=== PATIENT | female | born 1990 | race Hispanic/Latino ===

== ENCOUNTER 2020-01-24 14:32 | Inpatient (IN) | payer OTHER ==
[2020-01-24 15:40] LABS: Amphetamine Screen,Urine PRESUMPTIVE NEGATIVE; Benzodiazepines Screen,Urine PRESUMPTIVE NEGATIVE; Cannabinoid Screen,Urine PRESUMPTIVE POSITIVE; Methadone Screen,Urine PRESUMPTIVE NEGATIVE; Opiate Screen,Urine PRESUMPTIVE NEGATIVE
[2020-01-24 15:52] LABS: Bacteria,Urine 1+ /HPF (Negative); Bilirubin,Urine NEG (Negative); Blood,Urine MOD (Negative); Color,Urine Straw (Yellow); Protein,Urine <15 mg/dL mg/dL (Negative); Urobilinogen,Urine < 2.0 mg/dL (<2.0)
[2020-01-24 15:53] LABS: HCG Qualitative,Urine Negative (Negative)
[2020-01-24 15:59] LABS: Cocaine Screen,Urine PRESUMPTIVE NEGATIVE
[2020-01-24] MEDS ORDERED: SODIUM CHLORIDE 0.9% 1000 ML 1,000 ML IV ONE ×4 (16:02→19:46)
[2020-01-24] MEDS ORDERED: KETAMINE 500 MG/5 ML VIAL MDV ONE (16:13)
[2020-01-24] MEDS ORDERED: KETAMINE 500 MG/5 ML VIAL MDV IV ONE (16:14)
[2020-01-24 17:00] LABS: Alanine Aminotransferase 28 units/L (7-56); BUN/Creatinine Ratio 9; Bilirubin,Direct < 0.2 mg/dL (0-0.2); Blood Urea Nitrogen 7 mg/dL (7-17); Calcium 8.9 mg/dL (8.4-10.2); Creatine Kinase MB < 1.0 ng/mL (0.0-4.0); Hemolysis Index 22
[2020-01-24 17:07] LABS: Hematocrit 40.8 % (30.3-42.9); Hemoglobin 13.5 gm/dl (10.1-14.3); Mean Corpuscular HGB Conc 33 % (30-34); Mean Corpuscular Volume 90 fl (79-97); Red Blood Count 4.53 M/mm3 (3.65-5.03); Red Cell Distribution Width 13.5 % (13.2-15.2)
[2020-01-24 17:09] LABS: Platelet Count 249 K/mm3 (140-440)
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
[2020-01-24 17:55] LABS: Basophils % (Manual) 0 % (0.0-1.8); Eosinophils % (Manual) 0 % (0.0-4.3); Total Cells Counted 100
[2020-01-24 17:56] LABS: Platelet Clumps Few; RBC Morphology Normal
[2020-01-24 18:20] LABS: ABG Base Excess -4.4 mmol/L (-2.0-3.0); ABG HCO3 20.6 mmol/L (20.0-26.0); ABG Methemoglobin 0.7 % (0.0-1.5); ABG Oxygen Saturation 99.2 % (95.0-99.0); ABG PCO2 37.8 mm Hg; ABG PH 7.354 pH Units (7.350-7.450); ABG PO2 188.6 mm Hg (80.0-90.0); VEN PH 7.354 (7.320-7.420)
[2020-01-24 18:31] LABS: Blood Urea Nitrogen 6 mg/dL (7-17); Calcium 8.4 mg/dL (8.4-10.2); Hemolysis Index 8
[2020-01-24 18:41] LABS: BUN/Creatinine Ratio 9
[2020-01-24 18:51] LABS: Free T4 (Free Thyroxine) 1.24 ng/dL (0.76-1.46)
[2020-01-24] MEDS: POTASSIUM CHLORIDE 10 MEQ 10 MEQ/100 ML BAG IV SCH ×3 (19:13→21:47)
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
--- NOTE | 2020-01-24 20:44 | XRay Report ---
CHEST 1 VIEW 01/24/2020 8:29 PM INDICATION / CLINICAL INFORMATION: hypertension. COMPARISON: None available. FINDINGS: SUPPORT DEVICES: None. HEART / MEDIASTINUM: No significant abnormality. LUNGS / PLEURA: No significant pulmonary or pleural abnormality. No pneumothorax. ADDITIONAL FINDINGS: No significant additional findings. IMPRESSION: 1. No acute abnormality of the chest. Signer Name: Yunior Anaya MD Signed: 01/24/2020 8:40 PM Workstation Name: [id number]
[2020-01-24 21:06] LABS: Creatine Kinase MB 1.4 ng/mL (0.0-4.0)
[2020-01-24 21:19] LABS: BUN/Creatinine Ratio 10; Blood Urea Nitrogen 6 mg/dL (7-17); Hemolysis Index 2
[2020-01-24 21:22] LABS: Iron 14 ug/dL (37-170); Total Iron Binding Capacity 232 mcg/dL (250-450)
[2020-01-25] MEDS ORDERED: POTASSIUM CHLORIDE 10 MEQ 10 MEQ/100 ML BAG IV ONE (00:18)
[2020-01-25 02:18] LABS: Blood Urea Nitrogen 7 mg/dL (7-17); Calcium 8.4 mg/dL (8.4-10.2); Hemolysis Index 115
[2020-01-25 02:22] LABS: BUN/Creatinine Ratio 12
[2020-01-25] MEDS ORDERED: SODIUM CHLORIDE 0.9% 1000 ML 1,000 ML ONE (02:49)
[2020-01-25] MEDS: POTASSIUM CHLORIDE 10 MEQ 10 MEQ/100 ML BAG IV SCH (03:04)
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
[2020-01-25] MEDS ORDERED: oxyCODONE /ACETAMINOPHEN 5-325MG TAB PO PRN (08:27)
[2020-01-25] MEDS ORDERED: ACETAMINOPHEN 325 MG TAB PO PRN (08:27)
[2020-01-25] MEDS ORDERED: ONDANSETRON 4 MG/2 ML INJ IV PRN (08:27)
[2020-01-25] MEDS ORDERED: D5W/0.9% NACL 1,000 ML IV SCH (09:00)
[2020-01-25] MEDS: cefTRIAXone/NS 2 GM/100 ML 2 GM/100 ML BAG IV SCH (09:12)
[2020-01-25] MEDS: FAMOTIDINE 20 MG/2 ML INJ IV SCH ×2 (09:12→22:14)
[2020-01-25 09:27] LABS: Basophils % (Auto) 0.2 % (0.0-1.8); Eosinophils % (Auto) 0.2 % (0.0-4.3); Hematocrit 36.4 % (30.3-42.9); Hemoglobin 12.3 gm/dl (10.1-14.3); Lymphocytes # (Auto) 1.1 K/mm3 (1.2-5.4); Lymphocytes % (Auto) 10.3 % (13.4-35.0); Mean Corpuscular HGB Conc 34 % (30-34); Mean Corpuscular Volume 89 fl (79-97); Monocytes # (Auto) 0.9 K/mm3 (0.0-0.8); Monocytes % (Auto) 8.2 % (0.0-7.3); Platelet Count 213 K/mm3 (140-440); Red Blood Count 4.09 M/mm3 (3.65-5.03); Red Cell Distribution Width 13.3 % (13.2-15.2)
[2020-01-25 09:49] LABS: Alanine Aminotransferase 21 units/L (7-56); Albumin 3.3 g/dL (3.9-5); Blood Urea Nitrogen 7 mg/dL (7-17); Calcium 8.6 mg/dL (8.4-10.2); Hemolysis Index 4
[2020-01-25 09:51] LABS: BUN/Creatinine Ratio 10
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
--- NOTE | 2020-01-25 15:02 | Progress Note ---
Assessment and Plan -- Acute encephalopathy Possibly multifactorial including alcohol and marijuana cont IV fluids and monitor clinically -- Metabolic acidosis Secondary to alcohol and THC dependence and possible vomiting IV fluids for now IV Zofran for now Repeat labs in 24 hours -- Acute delirium Mental health consult to clear for discharge Patient is not homicidal or suicidal Continue all IV fluids and follow psych recommendation --EtOH dependence Counseled for alcohol cessation when clinically stable --Tetrahydrocannabinol (THC) dependence Patient to be counseled once she is stable -- Elevated lactic acid level Nonspecific likely from dehydration, repeat lactic acid level -- UTI (urinary tract infection) Mild IV Rocephin Patient has leukocytosis which may be demargination -- DVT prophylaxis On heparin and GI prophylaxis 01/24: Continue to follow psych recommendation, psych medications has been adjusted. Patient clinically looks stable. Discharge planning per psych recommendation Subjective Date of service: 01/25/20 Interval history: Patient seen and examined. Medical records and medication list reviewed. No acute event overnight noted by the RN. Patient denies any chest pain or difficulty breathing. Patient is tolerating diet. Discussed plan of care at bedside with patient. Objective - Exam Narrative Exam: GENERAL: well-developed and well-nourished young white female lying on bed appeared to be in no discomfort. HEENT: Normocephalic. Atraumatic. No conjunctival congestion or icterus. Patient has moist mucous membranes. NECK: Supple. Trachea midline. CHEST/LUNGS: Clear to auscultated bilaterally, breathing nonlabored. No wheezes crackles or rhonchi. HEART/CARDIOVASCULAR: Regular in rate and rhythm. S1 and S2 positive. ABDOMEN: Abdomen is soft, nontender. Patient has normal bowel sounds. SKIN: There is no rash. Warm and dry. NEURO: No focal motor deficit. Follows command. MUSCULOSKELETAL: No joint effusion or tenderness. EXTRIMITY: No edema, no cyanosis or clubbing. PSYCH: Cooperative. - Constitutional Vitals: Vital Signs - 12hr 01/25/20 01/25/20 01/25/20 04:01 04:51 05:01 Temperature Pulse Rate 117 H Respiratory 16 Rate Blood Pressure 111/55 111/55 111/55 O2 Sat by Pulse 96 97 97 Oximetry 01/25/20 01/25/20 01/25/20 05:11 05:21 08:00 Temperature 98.2 F Pulse Rate Respiratory Rate Blood Pressure 111/55 111/55 O2 Sat by Pulse 97 97 96 Oximetry 01/25/20 01/25/20 01/25/20 10:00 12:00 12:10 Temperature 98.4 F Pulse Rate 101 H 117 H Respiratory 24 Rate Blood Pressure O2 Sat by Pulse 96 Oximetry 01/25/20 01/25/20 01/25/20 12:11 12:21 12:31 Temperature Pulse Rate 104 H 102 H Respiratory 20 18 19 Rate Blood Pressure O2 Sat by Pulse 81 L 75 L 96 Oximetry 01/25/20 01/25/20 01/25/20 12:41 12:51 13:00 Temperature Pulse Rate 101 H 94 H Respiratory 16 17 Rate Blood Pressure 126/81 O2 Sat by Pulse 83 L Oximetry 01/25/20 01/25/20 01/25/20 13:11 13:30 14:12 Temperature Pulse Rate 100 H Respiratory 21 Rate Blood Pressure 126/81 126/81 126/81 O2 Sat by Pulse 83 L 89 Oximetry - Labs CBC & Chem 7: 01/25/20 08:45 01/26/20 04:58 Labs: Abnormal lab results 01/24/20 01/24/20 01/24/20 Range/Units 16:23 16:23 16:23 WBC (4.5-11.0) K/mm3 Lymph % (Auto) (13.4-35.0) % [place] % (Auto) (0.0-7.3) % Lymph # (Auto) (1.2-5.4) K/mm3 [place] # (Auto) (0.0-0.8) K/mm3 Seg Neutrophils % (40.0-70.0) % Seg Neuts % (Manual) (40.0-70.0) % Lymphocytes % (Manual) (13.4-35.0) % Seg Neutrophils # (1.8-7.7) K/mm3 Seg Neutrophils # Man (1.8-7.7) K/mm3 Lymphocytes # (Manual) (1.2-5.4) K/mm3 Monocytes # (Manual) (0.0-0.8) K/mm3 ABG pO2 (80.0-90.0) mm Hg ABG O2 Saturation (95.0-99.0) % ABG Base Excess (-2.0-3.0) mmol/L Oxyhemoglobin (95.0-99.0) % Potassium 3.0 L (3.6-5.0) mmol/L Chloride (98-107) mmol/L Carbon Dioxide 11 L (22-30) mmol/L BUN (7-17) mg/dL Glucose 172 H (65-100) mg/dL Lactic Acid (0.7-2.0) mmol/L Calcium (8.4-10.2) mg/dL Iron (37-170) ug/dL TIBC (250-450) mcg/dL Total Protein (6.3-8.2) g/dL Albumin (3.9-5) g/dL Ur Specific [place] (1.003-1.030) Urine WBC (Auto) (0.0-6.0) /HPF Salicylates < 0.3 L (2.8-20.0) mg/dL Acetaminophen 5.0 L (10.0-30.0) ug/mL Plasma/Serum Alcohol (0-0.07) % 01/24/20 01/24/20 01/24/20 Range/Units 16:23 16:23 18:08 WBC 19.0 H (4.5-11.0) K/mm3 Lymph % (Auto) (13.4-35.0) % [place] % (Auto) (0.0-7.3) % Lymph # (Auto) (1.2-5.4) K/mm3 [place] # (Auto) (0.0-0.8) K/mm3 Seg Neutrophils % (40.0-70.0) % Seg Neuts % (Manual) 90.0 H (40.0-70.0) % Lymphocytes % (Manual) 5.0 L (13.4-35.0) % Seg Neutrophils # (1.8-7.7) K/mm3 Seg Neutrophils # Man 17.1 H (1.8-7.7) K/mm3 Lymphocytes # (Manual) 1.0 L (1.2-5.4) K/mm3 Monocytes # (Manual) 1.0 H (0.0-0.8) K/mm3 ABG pO2 (80.0-90.0) mm Hg ABG O2 Saturation (95.0-99.0) % ABG Base Excess (-2.0-3.0) mmol/L Oxyhemoglobin (95.0-99.0) % Potassium (3.6-5.0) mmol/L Chloride (98-107) mmol/L Carbon Dioxide 18 L D (22-30) mmol/L BUN 6 L (7-17) mg/dL Glucose 120 H (65-100) mg/dL Lactic Acid (0.7-2.0) mmol/L Calcium (8.4-10.2) mg/dL Iron (37-170) ug/dL TIBC (250-450) mcg/dL Total Protein (6.3-8.2) g/dL Albumin (3.9-5) g/dL Ur Specific [place] (1.003-1.030) Urine WBC (Auto) (0.0-6.0) /HPF Salicylates (2.8-20.0) mg/dL Acetaminophen (10.0-30.0) ug/mL Plasma/Serum Alcohol 0.09 H (0-0.07) % 01/24/20 01/24/20 01/24/20 Range/Units 18:08 18:08 18:08 WBC (4.5-11.0) K/mm3 Lymph % (Auto) (13.4-35.0) % [place] % (Auto) (0.0-7.3) % Lymph # (Auto) (1.2-5.4) K/mm3 [place] # (Auto) (0.0-0.8) K/mm3 Seg Neutrophils % (40.0-70.0) % Seg Neuts % (Manual) (40.0-70.0) % Lymphocytes % (Manual) (13.4-35.0) % Seg Neutrophils # (1.8-7.7) K/mm3 Seg Neutrophils # Man (1.8-7.7) K/mm3 Lymphocytes # (Manual) (1.2-5.4) K/mm3 Monocytes # (Manual) (0.0-0.8) K/mm3 ABG pO2 188.6 H (80.0-90.0) mm Hg ABG O2 Saturation 99.2 H (95.0-99.0) % ABG Base Excess -4.4 L (-2.0-3.0) mmol/L Oxyhemoglobin 94.5 L (95.0-99.0) % Potassium (3.6-5.0) mmol/L Chloride (98-107) mmol/L Carbon Dioxide (22-30) mmol/L BUN (7-17) mg/dL Glucose (65-100) mg/dL Lactic Acid 2.30 H* (0.7-2.0) mmol/L Calcium (8.4-10.2) mg/dL Iron 14 L (37-170) ug/dL TIBC 232 L (250-450) mcg/dL Total Protein (6.3-8.2) g/dL Albumin (3.9-5) g/dL Ur Specific [place] (1.003-1.030) Urine WBC (Auto) (0.0-6.0) /HPF Salicylates (2.8-20.0) mg/dL Acetaminophen (10.0-30.0) ug/mL Plasma/Serum Alcohol (0-0.07) % 01/24/20 01/24/20 01/24/20 Range/Units 19:00 19:46 20:24 WBC (4.5-11.0) K/mm3 Lymph % (Auto) (13.4-35.0) % [place] % (Auto) (0.0-7.3) % Lymph # (Auto) (1.2-5.4) K/mm3 [place] # (Auto) (0.0-0.8) K/mm3 Seg Neutrophils % (40.0-70.0) % Seg Neuts % (Manual) (40.0-70.0) % Lymphocytes % (Manual) (13.4-35.0) % Seg Neutrophils # (1.8-7.7) K/mm3 Seg Neutrophils # Man (1.8-7.7) K/mm3 Lymphocytes # (Manual) (1.2-5.4) K/mm3 Monocytes # (Manual) (0.0-0.8) K/mm3 ABG pO2 (80.0-90.0) mm Hg ABG O2 Saturation (95.0-99.0) % ABG Base Excess (-2.0-3.0) mmol/L Oxyhemoglobin (95.0-99.0) % Potassium (3.6-5.0) mmol/L Chloride 109.0 H (98-107) mmol/L Carbon Dioxide (22-30) mmol/L BUN 6 L (7-17) mg/dL Glucose 107 H (65-100) mg/dL Lactic Acid 6.80 H* 2.80 H* (0.7-2.0) mmol/L Calcium 8.0 L (8.4-10.2) mg/dL Iron (37-170) ug/dL TIBC (250-450) mcg/dL Total Protein (6.3-8.2) g/dL Albumin (3.9-5) g/dL Ur Specific [place] (1.003-1.030) Urine WBC (Auto) (0.0-6.0) /HPF Salicylates (2.8-20.0) mg/dL Acetaminophen (10.0-30.0) ug/mL Plasma/Serum Alcohol (0-0.07) % 01/24/20 01/25/20 01/25/20 Range/Units Unknown 01:52 08:45 WBC (4.5-11.0) K/mm3 Lymph % (Auto) 10.3 L (13.4-35.0) % [place] % (Auto) 8.2 H (0.0-7.3) % Lymph # (Auto) 1.1 L (1.2-5.4) K/mm3 [place] # (Auto) 0.9 H (0.0-0.8) K/mm3 Seg Neutrophils % 81.1 H (40.0-70.0) % Seg Neuts % (Manual) (40.0-70.0) % Lymphocytes % (Manual) (13.4-35.0) % Seg Neutrophils # 8.7 H (1.8-7.7) K/mm3 Seg Neutrophils # Man (1.8-7.7) K/mm3 Lymphocytes # (Manual) (1.2-5.4) K/mm3 Monocytes # (Manual) (0.0-0.8) K/mm3 ABG pO2 (80.0-90.0) mm Hg ABG O2 Saturation (95.0-99.0) % ABG Base Excess (-2.0-3.0) mmol/L Oxyhemoglobin (95.0-99.0) % Potassium 5.2 H (3.6-5.0) mmol/L Chloride 110.4 H (98-107) mmol/L Carbon Dioxide 19 L (22-30) mmol/L BUN (7-17) mg/dL Glucose (65-100) mg/dL Lactic Acid (0.7-2.0) mmol/L Calcium (8.4-10.2) mg/dL Iron (37-170) ug/dL TIBC (250-450) mcg/dL Total Protein (6.3-8.2) g/dL Albumin (3.9-5) g/dL Ur Specific [place] 1.002 L (1.003-1.030) Urine WBC (Auto) 8.0 H (0.0-6.0) /HPF Salicylates (2.8-20.0) mg/dL Acetaminophen (10.0-30.0) ug/mL Plasma/Serum Alcohol (0-0.07) % 01/25/20 Range/Units 08:45 WBC (4.5-11.0) K/mm3 Lymph % (Auto) (13.4-35.0) % [place] % (Auto) (0.0-7.3) % Lymph # (Auto) (1.2-5.4) K/mm3 [place] # (Auto) (0.0-0.8) K/mm3 Seg Neutrophils % (40.0-70.0) % Seg Neuts % (Manual) (40.0-70.0) % Lymphocytes % (Manual) (13.4-35.0) % Seg Neutrophils # (1.8-7.7) K/mm3 Seg Neutrophils # Man (1.8-7.7) K/mm3 Lymphocytes # (Manual) (1.2-5.4) K/mm3 Monocytes # (Manual) (0.0-0.8) K/mm3 ABG pO2 (80.0-90.0) mm Hg ABG O2 Saturation (95.0-99.0) % ABG Base Excess (-2.0-3.0) mmol/L Oxyhemoglobin (95.0-99.0) % Potassium (3.6-5.0) mmol/L Chloride 111.5 H (98-107) mmol/L Carbon Dioxide (22-30) mmol/L BUN (7-17) mg/dL Glucose (65-100) mg/dL Lactic Acid (0.7-2.0) mmol/L Calcium (8.4-10.2) mg/dL Iron (37-170) ug/dL TIBC (250-450) mcg/dL Total Protein 6.0 L (6.3-8.2) g/dL Albumin 3.3 L (3.9-5) g/dL Ur Specific [place] (1.003-1.030) Urine WBC (Auto) (0.0-6.0) /HPF Salicylates (2.8-20.0) mg/dL Acetaminophen (10.0-30.0) ug/mL Plasma/Serum Alcohol (0-0.07) %
[2020-01-25] MEDS: DIVALPROEX DR 125 MG TAB PO SCH (22:14)
[2020-01-25] MEDS: risperiDONE 0.25 MG TAB PO SCH (22:14)
[2020-01-26 05:44] LABS: Alanine Aminotransferase 23 units/L (7-56); Albumin 3.4 g/dL (3.9-5); Blood Urea Nitrogen 5 mg/dL (7-17); Calcium 8.6 mg/dL (8.4-10.2); Hemolysis Index 3
[2020-01-26 05:47] LABS: BUN/Creatinine Ratio 7
[2020-01-26 06:57] VITALS: BP 127/80
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
[2020-01-26] MEDS: cefTRIAXone/NS 2 GM/100 ML 2 GM/100 ML BAG IV SCH (11:22)
[2020-01-26] MEDS: FAMOTIDINE 20 MG/2 ML INJ IV SCH (11:23)
[2020-01-26] MEDS: DIVALPROEX DR 125 MG TAB PO SCH (11:23)
[2020-01-26] MEDS: risperiDONE 0.25 MG TAB PO SCH (11:24)
[2020-01-26] MEDS ORDERED: FLU VACC QUAD 2020-2021 (6 months +)/PF 60 0.5 ML SYRINGE IM ONE (12:00)
--- NOTE | 2020-01-26 15:39 | Discharge Summary ---
Providers - Providers Date of Admission: 01/24/20 19:32 Date of discharge: 01/26/20 Attending physician: UGERLINE FERNANDEZ 01/25/20 Consult to Case Management [CONS] Routine Services Needed at Discharge: Maintenance Aide Notified:: block and case maker 01/25/20 08:27 Consult to Mental Health [CONS] Routine Reason For Exam: Acute confusion/delirium Primary care physician: PRESCHOOL ASSISTANT Hospitalization Condition: Stable Hospital course: Discharge diagnosis: Acute encephalopathy, resolved -Possibly due to alcohol and marijuana abuse Metabolic acidosis, likely due to dehydration, resolved with IV fluid Acute delirium resolved EtOH dependence, counseled for cessation Marijuana abuse, counseled for cessation Bipolar disorder, psych consulted and medication adjusted Cocaine use disorder Substance-induced mood disorder Lactic acidosis, likely due to dehydration and UTI Mild UTI treated with antibiotics Bacterial vaginosis, likely Disposition: DC-01 TO HOME OR SELFCARE Time spent for discharge: 34 minutes Core Measure Documentation - Palliative Care Palliative Care/ Comfort Measures: Not Applicable - Core Measures Any of the following diagnoses?: none Exam - Physical Exam Narrative exam: GENERAL: well-developed and well-nourished young white female lying on bed appeared to be in no discomfort. HEENT: Normocephalic. Atraumatic. No conjunctival congestion or icterus. Patient has moist mucous membranes. NECK: Supple. Trachea midline. CHEST/LUNGS: Clear to auscultated bilaterally, breathing nonlabored. No wheezes crackles or rhonchi. HEART/CARDIOVASCULAR: Regular in rate and rhythm. S1 and S2 positive. ABDOMEN: Abdomen is soft, nontender. Patient has normal bowel sounds. SKIN: There is no rash. Warm and dry. NEURO: No focal motor deficit. Follows command. MUSCULOSKELETAL: No joint effusion or tenderness. EXTRIMITY: No edema, no cyanosis or clubbing. PSYCH: Cooperative. - Constitutional Vitals: Temp Pulse Resp BP Pulse Ox 98.5 F 90 18 127/80 97 01/26/20 05:28 01/26/20 10:00 01/26/20 05:28 01/26/20 05:28 01/26/20 10:00 Plan Activity: advance as tolerated Weight Bearing Status: Weight Bear as Tolerated Diet: regular Additional Instructions: Follow-up with psychiatry as outpatient Follow up with: PRIMARY CARE, [Primary Care Provider] - 3-5 Days Prescriptions: Divalproprimitivo Castillo [Mitzi CASTILLO] 125 mg PO BID #60 tablet Fluconazole [Diflucan TAB] 100 mg PO QDAY #3 tablet metroNIDAZOLE [Flagyl] 500 mg PO Q8HR #10 tablet levoFLOXacin [Levaquin] 750 mg PO QDAY #3 tablet risperiDONE [RisperDAL] 0.25 mg PO BID #60 tab
--- NOTE | 2020-01-26 17:59 | Event Note ---
Date: 01/26/20 Medications called in to [facility] in [place] [phone] 125mg po BID #60 30 days, no refills Risperidone 0.25mg po BID #60 30 days. no refills
[2020-01-26] MEDS ORDERED: FAMOTIDINE 20 MG TAB PO SCH (22:00)
== END 2020-01-26 19:00 | disposition home or self-care (01) | DRG 917 ==
LOC: ED 14:32 → IMCU 19:32 → 4A 01-25 13:33
PROVIDERS: ADMIT Internal Medicine; ATTEND Internal Medicine
PROC: 4A033R1 Measurement of Arterial Saturation, Peripheral, Percutaneous Approach (ICD-10-PCS; principal; 2020-01-24)
DX: T40.7X1A Poisoning by cannabis (derivatives), accidental (unintentional), initial encounter (principal); G92 Toxic encephalopathy; N39.0 Urinary tract infection, site not specified; E87.2 Acidosis; B96.20 Unspecified Escherichia coli [E. coli] as the cause of diseases classified elsewhere; E86.0 Dehydration; T51.91XA Toxic effect of unspecified alcohol, accidental (unintentional), initial encounter; Y90.9 Presence of alcohol in blood, level not specified; F10.231 Alcohol dependence with withdrawal delirium; F12.20 Cannabis dependence, uncomplicated; D72.829 Elevated white blood cell count, unspecified; F14.90 Cocaine use, unspecified, uncomplicated; F31.9 Bipolar disorder, unspecified; N76.0 Acute vaginitis; B96.89 Other specified bacterial agents as the cause of diseases classified elsewhere; Y92.89 Other specified places as the place of occurrence of the external cause
CPT/HCPCS: 36415; 70450; 71045; 80048; 80053; 80076; 80307; 80320; 81001; 81025; 82010; 82140; 82550; 82553; 82693; 82803; 82805; 83036; 83550; 83735; 83930; 83935; 84439; 84443; 85007; 85025; 87076; 87086; 87186; 93005; 96361; 96365; 96366; 96375; G0378; G0480; J0696; J3480; J7030; J7042

== ENCOUNTER 2020-01-26 23:30 | Emergency (ER) | payer OTHER ==
--- NOTE | 2020-01-27 00:24 | Emergency Department Report ---
<CURTIS FERNANDEZ - Last Filed: 01/27/20 12:51> ED Psych HPI - General Chief Complaint: Psych Stated Complaint: SUICIDAL IDEATION Time Seen by Provider: 01/27/20 00:03 - Related Data Previous Rx's Medication Instructions Recorded Last Taken Type Divalproex Dr [DepaKOTE DR] 125 mg PO BID #60 tablet 01/26/20 Unknown Rx Fluconazole [Diflucan TAB] 100 mg PO QDAY #3 tablet 01/26/20 Unknown Rx levoFLOXacin [Levaquin] 750 mg PO QDAY #3 tablet 01/26/20 Unknown Rx metroNIDAZOLE [Flagyl] 500 mg PO Q8HR #10 tablet 01/26/20 Unknown Rx risperiDONE [RisperDAL] 0.25 mg PO BID #60 tab 01/26/20 Unknown Rx Allergies Allergy/AdvReac Type Severity Reaction Status Date / Time No Known Allergies Allergy Unverified 01/24/20 15:10 ED Past Medical Hx - Medications Home Medications: Home Medications Medication Instructions Recorded Confirmed Last Taken Type Divalproex Dr [DepaKOTE DR] 125 mg PO BID #60 tablet 01/26/20 Unknown Rx Fluconazole [Diflucan TAB] 100 mg PO QDAY #3 tablet 01/26/20 Unknown Rx levoFLOXacin [Levaquin] 750 mg PO QDAY #3 tablet 01/26/20 Unknown Rx metroNIDAZOLE [Flagyl] 500 mg PO Q8HR #10 tablet 01/26/20 Unknown Rx risperiDONE [RisperDAL] 0.25 mg PO BID #60 tab 01/26/20 Unknown Rx ED Medical Decision Making - Lab Data Result diagrams: 01/27/20 00:34 01/27/20 00:34 - Medical Decision Making Patient is 29 years old female presented to our ER complaining of suicidal ideation. Patient has been evaluated by our psychiatric team and advised p atient to be discharged home and follow-up as an outpatient. Patient is currently denying any suicidal homicidal ideation. No visual or auditory hallucination. Patient is medically and psychiatrically stable for discharge. ED Disposition Clinical Impression: Malingering Disposition: DC-01 TO HOME OR SELFCARE Is pt being admited?: No Condition: Stable Instructions: Persistent Depressive Disorder, Adult, Suicidal Feelings: How to Help Yourself Additional Instructions: HOMELESS RESOURCES: [facility] NEED HELP? If you are in need of help or know someone who does, please contact us at [email or web address] call , or come to our offices at [address], [place] [address], Sunday-Sunday beginning at 8AM. [facility] Admission at 7am Sun to Sun Address: [facility] [place] [address] Client Engagement [phone] Regular program admission occurs Sunday through Sunday at 7:00 amand operates on a first come, first serve basis.Because we cant anticipate program availability in advance andprogram spots are in high demand, we recommend arriving early. Space fills up fast! Next steps can include: Assignment to a [facility] program bed Connection to and placement in a partner program, or Referral to a partner agency [place] [facility] [place]: [facility] Address: [address] [place] [address] How do I join the [facility] housing program? Our housing programs are offered based on availability. If you are looking to participate in our housing program, simply call [phone] to find out if we have available space. Since we do receive many calls, please allow up to 48 hours for one of our housing specialists to return your call. If we do not have vacancies, we suggest callingthe [facility] hotline at 211 for additional housing options. [facility] [place] Admission at 4:30pm daily Address: [address] [place] [id number] OUTPATIENT MENTAL HEALTH RESOURCES [facility], [facility] Lincoln Osborn MD: [address], [address] [place] [address] [place] [address] [place] [facility]: [facility] [address] [place] [address] [place] [address] [phone] [facility] Integrative Psychiatry: [facility] Healthcare: [address] [facility] [address] [facility] [place] [address] [facility] [address] [place] [facility]: Odilon Silverio MD: [address] [facility] [address] [facility] [address] [facility]: [address] [facility] [place] [address] [phone] [place] CRISIS AND ACCESS LINE: Outpatient COMMUNITY Behavioral Health Resources: [facility] ([facility]) [address] [place] [address] / [phone] Sunday thru Sunday - 8am - 5pm [facility] Address: [address] [place] [address] Sunday thru Sunday- 7am-2pm [facility] Address: [address] [place] [address] Sunday thru Sunday: 8:30AM-5PM CRISIS RESOURCES [place] Crisis Line: Suicide Prevention Line: Crisis Text Line: Text START to 123358 Emergency: 911 Referrals: PRIMARY CARE, [Primary Care Provider] - 3-5 Days <ANG OLIVA - Last Filed: 01/27/20 20:41> ED Psych HPI - General Source: patient, EMS Mode of arrival: Ambulatory - History of Present Illness Initial Comments: 29-year-old female with reported history of borderline personality disorder, anxiety, depression, since the ED with suicidal ideations. Patient was discharged earlier today following an admission for delirium metabolic abnormalities. Patient states her admission from a few days ago was a result of an attempted overdose. Patient states she took "a bunch" of psych meds some of which were her own and some that did not belong to her. Patient was seen by mental health nurse practitioner yesterday morning, 01/26/20, prior to discharge. Patient reported at that time that she was not experiencing any SI o r HI. She expressed that she was ready to be discharged and stated that she will follow-up as an outpatient. Patient returns tonight, stating that she is feeling suicidal again, with plan to overdose again. Patient states she thought she was feeling okay, however "life got in the way again." Patient's prescriptions were called in, Depakote and Risperdal, however she did not pick them up. Complaint: suicidal ideation -: days(s) (4) Associated Psychiatric Symptoms: suicidal ideation History of same: Yes Quality: changing over time Improves With: none Worsens With: none Context: not taking psychiatric Associated Symptoms: denies other symptoms Treatments Prior to Arrival: none ED Review of Systems ROS: Stated complaint: SUICIDAL IDEATION Other details as noted in HPI Comment: All other systems reviewed and negative Psychiatric: suicidal thoughts. denies: homicidal thoughts ED Past Medical Hx - Past Medical History Previous Medical History?: Yes Hx Psychiatric Treatment: Yes (depression, anxiety) Additional medical history: Unknown - Surgical History Past Surgical History?: No - Social History Smoking Status: Current Every Day Smoker Substance Use Type: Alcohol, Other ED Physical Exam - General Limitations: No Limitations General appearance: alert, in no apparent distress - Head Head exam: Present: atraumatic, normocephalic - Eye Eye exam: Present: normal appearance, EOMI - ENT ENT exam: Present: mucous membranes moist - Neck Neck exam: Present: normal inspection - Respiratory Respiratory exam: Present: normal lung sounds bilaterally. Absent: respiratory distress - Cardiovascular Cardiovascular Exam: Present: regular rate, normal rhythm - GI/Abdominal GI/Abdominal exam: Present: soft. Absent: distended, tenderness - Extremities Exam Extremities exam: Present: normal inspection - Neurological Exam Neurological exam: Present: alert, oriented X3 - Psychiatric Psychiatric exam: Present: normal affect, normal mood - Skin Skin exam: Present: warm, dry, intact, normal color ED Course Vital Signs 01/26/20 01/27/20 23:55 03:35 Temperature 97.6 F 98.0 F Pulse Rate 70 89 Respiratory 18 18 Rate Blood Pressure 128/87 117/64 [Left] O2 Sat by Pulse 98 96 Oximetry ED Medical Decision Making - Lab Data Result diagrams: 01/27/20 00:34 01/27/20 00:34 - Medical Decision Making 29-year-old female presents to ED with suicidal ideations. Patient was just discharged this morning following a medical admission for delirium. Patient had a psychiatric consult during her admission and was cleared for discharge after stating that she was no longer suicidal. Patient no longer feels that way. Labs are unremarkable. Patient is medically cleared at this time for mental health evaluation. Will dispo per psych. Critical care attestation.: If time is entered above; I have spent that time in minutes in the direct care of this critically ill patient, excluding procedure time. ED Disposition Is pt being admited?: No
[2020-01-27 01:04] LABS: Amphetamine Screen,Urine PRESUMPTIVE NEGATIVE; Benzodiazepines Screen,Urine PRESUMPTIVE NEGATIVE; Cannabinoid Screen,Urine PRESUMPTIVE POSITIVE; Cocaine Screen,Urine PRESUMPTIVE NEGATIVE; Methadone Screen,Urine PRESUMPTIVE NEGATIVE; Opiate Screen,Urine PRESUMPTIVE NEGATIVE
[2020-01-27 01:08] LABS: Basophils # (Auto) 0.1 K/mm3 (0.0-0.1); Basophils % (Auto) 1.1 % (0.0-1.8); Eosinophils % (Auto) 0.2 % (0.0-4.3); Hematocrit 36.2 % (30.3-42.9); Hemoglobin 12.2 gm/dl (10.1-14.3); Lymphocytes # (Auto) 0.7 K/mm3 (1.2-5.4); Lymphocytes % (Auto) 9.1 % (13.4-35.0); Mean Corpuscular HGB Conc 34 % (30-34); Mean Corpuscular Volume 88 fl (79-97); Monocytes # (Auto) 0.3 K/mm3 (0.0-0.8); Monocytes % (Auto) 4.3 % (0.0-7.3); Platelet Count 239 K/mm3 (140-440); Red Blood Count 4.11 M/mm3 (3.65-5.03); Red Cell Distribution Width 13.9 % (13.2-15.2)
[2020-01-27 01:18] LABS: Blood Urea Nitrogen 5 mg/dL (7-17); Calcium 8.9 mg/dL (8.4-10.2); Hemolysis Index 7
[2020-01-27 01:22] LABS: BUN/Creatinine Ratio 7
[2020-01-27 03:36] VITALS: BP 117/64
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
[2020-01-27] MEDS ORDERED: NICOTINE 14 MG/24 HR PATCH TD ONE (09:36)
[2020-01-27] MEDS: DIVALPROEX DR 125 MG TAB PO SCH ×2 (09:53→09:55)
[2020-01-27] MEDS: risperiDONE 0.25 MG TAB PO SCH ×2 (09:53→09:55)
[2020-01-27] MEDS ORDERED: diphenhydrAMINE 25 MG CAP PO ONE (10:05)
== END 2020-01-27 13:06 | disposition home or self-care (01) ==
LOC: ED 23:30
DX: F31.9 Bipolar disorder, unspecified (principal); F15.14 Other stimulant abuse with stimulant-induced mood disorder; F14.10 Cocaine abuse, uncomplicated
CPT/HCPCS: 36415; 80048; 80307; 80320; 84703; 85025; G0480